=== PATIENT | female | born 1950 | race Caucasian/White ===

== ENCOUNTER → 2017-10-29 | Outpatient (CLI) | payer MEDICARE ==
--- NOTE | 2017-10-29 12:25 | Diagnostic Imaging Report ---
PROCEDURE:LOWER LEG RIGHT TECHNIQUE:AP and lateral views right tibia INDICATION:Pain status post fall COMPARISON:None. FINDINGS: The right tibia, fibula and image regional skeleton are intact and in anatomic alignment. Normal regional soft tissues. CONCLUSION: No acute abnormality. Dictated by: Rai Jiménez M.D. on 10/29/2017 at 12:27 Electronically approved by: Rai Jiménez M.D. on 10/29/2017 at 12:27
== END ==
LOC: RAD 11:21
PROVIDERS: ATTEND Internal Medicine
DX: S80.11XA Contusion of right lower leg, initial encounter (principal)

== ENCOUNTER → 2022-08-27 | Outpatient (CLI) | payer MEDICARE ==
[~2022-08-27] MED LIST: DIATRIZOATE MEGL/DIATRIZOA SOD 30 ML BTL PO ONE; IOPAMIDOL 370 MG/ML 100 ML INFUS..BTL INJ ONE
== END ==
LOC: CT 15:41
PROVIDERS: ATTEND Internal Medicine
DX: K57.30 Diverticulosis of large intestine without perforation or abscess without bleeding (principal)
CPT/HCPCS: 74177; Q9963; Q9967

== ENCOUNTER 2024-04-19 09:28 | Emergency (ER) | payer MEDICARE ==
[~2024-04-19] VITALS: Ht 152.4 cm; Wt 78.0 kg
[2024-04-19 09:45] VITALS: PULSE 91; RESP 20; TEMP 98.5; O2SAT 95
[2024-04-19] MEDS: Morphine 4mg INJECTION 4 MG/ML INJ IV ONE (10:20)
[2024-04-19] MEDS: ONDANSETRON HCL INJ 2MG/ML 2ML 2 MG/ML VIAL IV STA (10:20)
[2024-04-19] MEDS: SODIUM CHLORIDE 0.9% 1000ML 1,000 ML IV SCH (10:21)
[2024-04-19 11:26] VITALS: BP 132/86; PULSE 86; RESP 18; TEMP 98.2
== END 2024-04-19 11:30 | disposition home or self-care (01) ==
LOC: FSED 09:40
DX: R11.2 Nausea with vomiting, unspecified (principal); K52.9 Noninfective gastroenteritis and colitis, unspecified; E86.0 Dehydration; R10.9 Unspecified abdominal pain; I10 Essential (primary) hypertension
CPT/HCPCS: 74176; 99283; J2270; J2405; J7030

== ENCOUNTER → 2024-08-11 | Outpatient (REF) | payer MEDICARE | LOC: RAD 15:55 | PROVIDERS: ATTEND Internal Medicine | DX: Z01.818 Encounter for other preprocedural examination (principal) | CPT/HCPCS: 71046 ==

== ENCOUNTER → 2024-10-13 | Outpatient (REF) | payer MEDICARE | LOC: RAD 13:51 | PROVIDERS: ATTEND Internal Medicine | DX: R22.41 Localized swelling, mass and lump, right lower limb (principal) | CPT/HCPCS: 93971 ==